=== PATIENT | male | born 1980 | race Caucasian/White ===

== ENCOUNTER 2024-11-10 10:58 | Outpatient (CLI) | payer OTHER, SELFPAY ==
--- NOTE | 2024-11-10 11:03 | XR_ITS ---
FINAL REPORT CLINICAL HISTORY: left knee pain COMPARISON: None FINDINGS: LEFT KNEE: 3 views of the left knee failed to reveal any evidence of fracture or dislocation. No significant joint effusion is noted. No soft tissue abnormality is noted as well. IMPRESSION: Unremarkable left knee. Reviewed, Interpreted and Dictated by Montserrat Gay MD Transcribed by Desire Campo Authenticated and [facility]
== END 2024-11-10 23:59 | disposition home or self-care (01) ==
LOC: RAD 10:59
PROVIDERS: PCP Family Medicine; Visit Provider Family Medicine
DX: M25.562 Pain in left knee (principal)
CPT/HCPCS: 73562

== ENCOUNTER 2025-02-27 09:55 | Outpatient (CLI) | payer OTHER, SELFPAY ==
--- NOTE | 2025-02-27 09:58 | XR_ITS ---
FINAL REPORT CLINICAL HISTORY: left hand pain 3rd digit, twisted it, now pain and swelling FINDINGS: LEFT HAND: Three views show no evidence of acute displaced fracture or dislocation of the visualized bony architecture. Postoperative changes are present in the fifth proximal phalanx, and also in the fifth PIP joint. The joint spaces appear normal. IMPRESSION: Postoperative changes as described, without acute bony abnormality. Reviewed, Interpreted and Dictated by Montserrat Gay MD Transcribed by Desire Campo Authenticated and [facility]
--- NOTE | 2025-02-27 09:58 | XR_ITS ---
FINAL REPORT CLINICAL HISTORY: left wrist pain COMPARISON: None FINDINGS: LEFT WRIST THREE VIEW FINDINGS: Three views show no evidence of an acute, displaced fracture or dislocation of the visualized bony architecture. The joint spaces appear normal. IMPRESSION: Unremarkable exam. Reviewed, Interpreted and Dictated by Montserrat Gay MD Transcribed by Desire Campo Authenticated and [facility]
--- OUTSIDE RECORDS SUMMARY | 2025-02-27 10:23 | XMS_ITS | Data Portability ---
Author Organization [facility] ADMIN Address [address] [place] [address] Assessment No assessment recorded. Plan of Treatment Reminders Order Date Submit Date Provider Last Modified By Organization Details Last Modified Time Details Appointments None recorded. Lab None recorded. Referral None recorded. Procedures None recorded. Surgeries None recorded. Imaging None recorded. Medication Orders clomipramin e 25 mg capsule 2023 [facility], [address] [place], [address], 4 16:14:28 Patient TargetsNo targets recorded. Patient InstructionsNo instructions recorded. Reason for Referral None Reported. Problems Name Problem SNOMED Code Status Onset Date Resolution Date Notes Provider Name and Address Organization Details Recorded Time Diabetes mellitus [id number] Active Sal Rider [facility] & [place] 4 10:17:59 Problem Notes None recorded. Procedures Surgical History Date Name Laterality Status Provider Name and Address Organization Details Recorded Time bypass of stomach completed Sal Rider [facility] & [place] 06/15/2024 10:18:52 Imaging Results None recorded. Procedure Notes None recorded. Medical Equipment None Reported. Allergies No known drug allergies Medications Name Sig Start Date Stop Date Status Note LastModified by Organization Details LastModified Time sulfamethoxa zole 800 mg-trimethop rim 160 mg tablet active Not Available Not Available Not Available prednisolone acetate 1 % eye drops,suspen yobani 06/15 completed Not Available Not Available Not Available clindamycin 1 % topical gel 06/15 completed Not Available Not Available Not Available doxycycline monohydrate 100 mg capsule 10/09 /2024 completed Not Available Not Available Not Available cephalexin 500 mg capsule 06/15 completed Not Available Not Available Not Available polymyxin B sulfate 10,000 unit-trimeth oprim 1 mg/mL eye drops 06/15 completed Not Available Not Available Not Available clomipramine 25 mg capsule Take 1 capsule every day by oral route for 90 days. active Not Available Not Available No t Available Ambien active Not Available Not Availa ble Not Available Ozempic 0.25 mg or 0.5 mg (2 mg/3 mL) subcutaneous pen injector active Not Available Not Available Not Available Vitals Date Recorded Body height Body mass index (BMI) Body weight Body temperature Provider Name and Address Organization Details Last Updated DateTime 06/15/2024 190.5 cm 37.5 kg/m2 582939.71 g 98.5 [degF] Sal Rider [facility] & [place] 06/15/2024 10:17:10 Social History None recorded. Functional Status Question Answer Note LastModified by Organizat ion Details LastModified Time Do you or have you ever used any other forms of tobacco or nicotine? Yes [email or web address] Information not available 06/15/2024 What is your level of alcohol consumption? 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 Current user of electronic cigarettes [email or web address] Information not available 06/15/2024 Mental Status None recorded. Family History Relationship Description Onset Age of this Age Resolved Age Notes LastModified by Organization Details LastModified Time Father Heart disease dec [email or web address] Not available 2023 10:18:23 Brother Heart disease dec Not available 2023 10:18:23 Medical History No medical history recorded. Past Encounters Encounter ID Performer Location Encounter Start Date Encounter Closed Date Diagnosis/Indication Diagnosis SNOMED-CT Code Diagnosis ICD10 Code Diagnosis Note [id number] Gonzalo Mike Jr, MD [facility] [address] [address] 06/15/2024 09:27:48 06/15/2024 11:09:50 Premature ejaculation 67579380 F52.4 Patient complains of premature ejaculatio n. States he ejaculates within 2 minutes. We discussed treatment options in a prescripti on for clomiprami ne daily was sent in for him. Epididymitis 73596984 N4 5.1 patient will be history of right testicular discomfort and swelling. He states that the symptoms have improved and exam today consistent with epididymit is. We discussed conservati ve measures including restrictio n of strenuous activity including intercours e, scrotal support, local heat. Health Concerns Section Related Observation LastModified by Organization Detai ls LastModified Time None Recorded Concern Status LastModified by Organization Details LastModified Time None Recorded Advance Directives Directive None Recorded Payers Insurance Date Sequence Insurance Name Policy Number Policy Taylor Covered Member ID Taylor Member ID Guarantor Name 07/07/2024 1 [id number] ([id number] Marito Turner [id number] Marito Turner Notes Date Note Type Note Provider Name and Address Organization Details Recorded Time 06/15/2024 text/html Patient is a 44-year-old white male referred for a 3 week history of right testicular pain and swelling. Primary care physician on June 13, 2024. That note was reviewed. Patient has some associated lower urinary tract symptoms that had resolved with resolution of constipation. Patient states he still has some dull pain in his right testicle.Patient also complains of Premature ejaculation. Gonzalo Mike Jr, MD [address] [place] [address], [address], [place], [address], [facility] [place] & [place] 07/06/2024 10:45:54
--- OUTSIDE RECORDS SUMMARY | 2025-02-27 10:23 | XMS_ITS | Clinical Summary ---
Author Organization Healthcare Address [address] [place] [address] Care Team Providers Care Electrician Shop Name Role Phone Pcp, No Primary Care Provider Unavailabl e Active Problems Problem Noted Date Diagnosed Date Injury of collateral ligament of finger of left hand 10/24/2020 Hand pain 10/23/2020 Social History Tobacco Use Types Packs/Day Years Used Date Smoking Tobacco: Never Sex and Gender Information Value Date Recorded Sex Assigned at Not on file Legal Sex Male 6:29 PM EDT Gender Identity Not on file Sexual Orientation Not on file Last Filed Vital Signs Vital Sign Reading Time Taken Comments Blood Pressure 143/106 12/26/2020 10:46 AM EDT Pulse 75 12/26/2020 10:46 AM EDT Temperature 36.6 C (97.9 F) 12/26/2020 10:46 AM EDT Respiratory Rate - - Oxygen Saturation - - Inhaled Oxygen Concentration - - Weight 128 kg (282 lb 15.7 oz) 12/26/2020 10:46 AM EDT Height 190.5 cm (6' 3 ) 12/26/2020 10:46 AM EDT Body Mass Index 35.37 12/26/2020 10:46 AM EDT Plan of Treatment Health Maintenance Due Date Last Done Comments Dental Oral Exam 1982 Dental Prophylaxis 1982 Dental X-Ray: Bitewings 1982 Dental X-Ray: Full Mouth 1982 [facility]-Depression Screening 1982 [facility]-HIV Screening 1982 [facility]-Hepatitis C Screening 1982 [facility]-/Child/Adol SDOH Screenings 1982 [facility]-Varicella Vaccines (1 of 2 - 13+ 2-dose series) 1995 [facility]-DTaP,Tdap,and Td Vaccines (2 - Tdap) 01/06/1997 01/05/1997 HPV Vaccines (1 - Male 3-dose series) 1997 [facility]- SDOH Screenings 2000 [facility]-Adult SDOH Screenings 2000 [facility]-Hepatitis B Vaccines (3 of 3 - 3-dose series) 11/12/2000 09/16/2000, 07/23/2000 [id number]-24 Vaccine (2 - season) 2024 01/26/2021 [facility]-Influenza Vaccine (Season Ended) 2025 05/26/2016 [facility]-Zoster Vaccines (1 of 2) 2032 [facility]-HIB Vaccines Aged Out No longer e ligible based on patient's age to complete this topic [facility]-Hepatitis A Vaccines Aged Out No longer eligible based on patient's age to complete this topic [facility]-IPV Vaccines Aged Out No longer e ligible based on patient's age to complete this topic [facility]-Pneumococcal Vaccine: Pediatrics (0 to 5 Years) and At-Risk Patients (6 to 49 Years) Aged Out No longer eligible b ased on patient's age to complete this topic [facility]-Rotavirus Vaccines Aged Out No lo nger eligible based on patient's age to complete this topic Insurance Care Teams Electrician Shop Relationship Specialty Start Date End Date Pcp, [place] [address] PCP - General Family Medicine 04/29/24
--- OUTSIDE RECORDS SUMMARY | 2025-02-27 10:23 | XMS_ITS | Encounter Summary ---
Author Organization Healthcare Address [address] [place] [address] Care Team Providers Care Manufacturing Laborer Name Role Phone Pcp, No Primary Care Provider Unavailabl e Reason for Referral * Consultation (Routine) - Closed Specialty Diagnoses / Procedures Referred By Contpillo t Referred To Contact Endodontics / Dentistry Diagnoses Irreversible pulpitis Ban Moseley DMD [address] [place] [address] Phone: tel: fax: [facility] [address] [place] [address] Phone: tel: fax: Referral ID Status Reason Start Date Expiration Date V isits Requested Visits Authorized [id number] Closed Specialty Services Required 02/24/2024 08/25/2025 1 1 Encounter Details Date Type Department Care Team (Late st Contact Info) Description 02/24/2024 Community Orders Community Practice [address] [place] [address] Ban Moseley DMD [address] [place] [address] Irreversible pulpitis (Primary Dx) Social History Tobacco Use Types Packs/Day Years Used Date Smoking Tobacco: Never Sex and Gender Information Value Date Recorded Sex Assigned at Not on file Legal Sex Male 6:29 PM EDT Gender Identity Not on file Sexual Orientation Not on file documented as of this encounter Plan of Treatment Scheduled Referrals Name Type Priority Associated Diagnoses Order Schedule Ambulatory referral to Endodontics Outpatient Referral Routine Irreversible pulpitis Expected: 02/24/2024 (Approximate), Expires: 02/23/2025 documented as of this encounter Visit Diagnoses Diagnosis Irreversible pulpitis- Primary documented in this encounter Care Teams Manufacturing Laborer Relationship Specialty Start Date End Date Pcp, [place] [address] PCP - General Family Medicine 04/29/24 documented as of this encounter
--- OUTSIDE RECORDS SUMMARY | 2025-02-27 10:23 | XMS_ITS | Data Portability ---
Author Organization [facility] SHAWN Preciado DUNK[facility] CLOSED Address [address] [place] [address] Care Team Providers Care Facility Assistant Name Role Phone CARLOS MONTEMAYOR Primary Care Provider Assessment No assessment recorded. Plan of Treatment Reminders Order Date Submit Date Provider Last Modified By Organization Details Last Modified Time Details Appointments None record ed. Lab None record ed. Referral None record ed. Procedures None record ed. Surgeries None record ed. Imaging None record ed. Medication Orders None record ed. Patient TargetsNo targets recorded. Patient InstructionsNo instructions recorded. Reason for Referral None Reported. Results Created Date Observation Date Name Description Value Unit Range Abnormal Flag Note LastModifiedBy Organization Detail LastModifiedTime 01/26/20 18 09/16/2017 MRI, lumba r spine , w/o contr ast No observ ation record ed. BARCODE Not Available 2017 15:16:53 Result Notes None recorded. Procedures Surgical History Date Name Laterality Status Provider Name and Address Organization Details Recorded Time 01/26/20 18 Interpretation completed FIDEL COWAN PA-C [address] [place], [address], [facility] 01/26/2018 14:36:55 Gastric bypass for obesity completed Britney Pond [facility] 01/25/2018 14:55:42 Imaging Results None recorded. Procedure Notes None recorded. Medical Equipment None Reported. Allergies No known drug allergies Medications Name Sig Start Date Stop Date Status Note LastModified by Organization Details LastModified Time ibuprofen active Not Available Not Maria E ilable Not Available Vitals Date Recorded Body height Body mass index (BMI) Body weight Systolic blood pressure Diastolic blood pressure Provider Name and Address Organization Details Last Updated DateTime 01/25/2018 187.96 cm 34.8 kg/m2 331003.5 3 g 130 mm[Hg] 80 mm[Hg] Britney Pond [facility] 8 15:26:25 Social History Question Answer Notes LastModified by Organizat ion Details LastModified Time Tobacco Smoking Status Current Every Day Smoker Britney Pond [facility], [facility] 01/25/2018 14:55:15 What Was The Date Of Your Most Recent Tobacco Screening? 01/25/2018 Information n ot available 10/25/2019 How Much Tobacco Do You Smoke? 1.5 PPD Information not available 01/25/2018 How Many Years Have You Smoked Tobacco? 20 Information not available 01/25/2018 Sex: Unknown Functional Status None recorded. Mental Status None recorded. Family History Relationship Description Onset Age of this Age Resolved Age Notes LastModified by Organization Details LastModified Time Unspecified Relation Malignant neoplastic disease [email or web address] Not available 01/25 14:56:10 Unspecified Relation Diabetes mellitus [email or web address] Not available 01/25 14:56:16 Unspecified Relation Hypertensive disorder [email or web address] Not available 01/25 14:56:21 Unspecified Relation Myocardial infarction [email or web address] Not available 01/06 14:56:33 Medical History No medical history recorded. Past Encounters Encounter ID Performer Location Encounter Start Date Encounter Closed Date Diagnosis/Indication Diagnosis SNOMED-CT Code Diagnosis ICD10 Code Diagnosis Note [id number] FIDEL COWAN PA-C [facility] [address] [facility] [facility] [place] [address] 01/25/2018 14:29:59 01/26/2018 16:07:32 Prolapsed lumbar intervertebral disc 244170596 M51.26 33M with low back pain and a central disc bulge at L5-S1 on MRI. There is no significan t nerve compressio n on the patients MRI. He is neurologic ally intact. However, he has failed the majority of conservati ve treatments and continues to have significan t low back pain. It is reasonable to perform a discectomy at this level as a last resort. The procedure was discussed in detail with the patient, along with the risks and benefits. We would not be able to guarantee significan t improvemen t in his back pain, but it is reasonable to consider this treatment option. We will have the patient give his back pain a few more months. If he is still having severe functional ly impairing low back pain, then we would consider a L5-S1 microdisce ctomy, he will contact our office at that time. Pt was seen and examined by myself and by Dr. Land who agrees with above. Health Concerns Section Related Observation LastModified by Organization Detai ls LastModified Time None Recorded Concern Status LastModified by Organization Details LastModified Time None Recorded Advance Directives Directive None Recorded Payers Insurance Date Sequence Insurance Name Policy Number Policy Taylor Covered Member ID Taylor Member ID Guarantor Name 01/27/2018 1 [employer] (POS) Marito Turner [id number] Marito Turner 01/25/2018 1 [employer] (PPO) Marito Turner [id number] Marito Turner Notes Date Note Type Note Provider Name and Address Organization Details Recorded Time 01/25/2018 text/html 33M with history of gastric bypass surgery with +100lb weight loss, presents to clinic for evaluation of 6 months of low back pain. 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 The pain is located in the lower lumbar spine, just off to the right. He also endorses chronic right big toe numbness, but this was present prior to his back pain. He has participated in physical therapy, primary care md and has had two NICOLÁS. He has also been evaluated by the neurosurgery group at [facility] who did not recommend surgery. He denies any saddle paresthesia or change in B&B. His back pain is made worse with prolonged standing/walking. The patient has been off work for several months and is motivated to return to work. 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 FIDEL COWAN PA-C [facility] [place], [address], [facility] 01/26/2018 14:41:39
== END 2025-02-27 23:59 | disposition home or self-care (01) ==
LOC: RAD 09:56
PROVIDERS: PCP Family Medicine; Visit Provider Physician Assistant
DX: M79.642 Pain in left hand (principal); M25.532 Pain in left wrist; M79.89 Other specified soft tissue disorders; Z98.890 Other specified postprocedural states; X50.1XXA Overexertion from prolonged static or awkward postures, initial encounter
CPT/HCPCS: 73110; 73130